=== PATIENT | female | born 1990 | race Caucasian/White ===

== ENCOUNTER → 2023-12-12 18:06 | Outpatient (REF) | payer OTHER, SELFPAY | LOC: MRI 3T 18:06 | PROVIDERS: ATTENDING PHYSICIAN Specialist | DX: T85.41XA Breakdown (mechanical) of breast prosthesis and implant, initial encounter (principal) | CPT/HCPCS: 77047; C8937 ==

== ENCOUNTER → 2024-01-09 17:28 | Outpatient (REF) | payer OTHER, SELFPAY | LOC: CLAB 17:28 | PROVIDERS: ATTENDING PHYSICIAN Specialist | DX: Z41.1 Encounter for cosmetic surgery (principal) | CPT/HCPCS: 88305 ==